=== PATIENT | male | born 1975 | race Caucasian/White ===

== ENCOUNTER 2017-12-03 13:04 | Emergency (ER) | payer OTHER ==
[~2017-12-03] VITALS: Ht 190.5 cm; Wt 105.7 kg
[~2017-12-03 13:04] MED LIST: ACETAMINOPHEN PO; AMOXICILLIN 50500 M1 PO; CIPRODEX OTIC7.5 ML OT; CLEOCIN HCL300 MG PO; CORTISPORIN OTI10 M2 OT; FLEXERIL PO; FLOMAX0.4 MG PO; FLONASE16 GM NS; IBUPROFEN 800800 M1 PO; MOBIC15 MG PO; NOHOMEMEDICATIONS; NORCO 5-325 TA1 EACH PO; PENICILLIN V P500 MG PO; PREDNISONE 20 M20 MG PO; PREDNISONE50 MG PO; ULTRAM 50MG TAB50 MG PO
[2017-12-03 14:40] VITALS: BP 142/91
== END 2017-12-03 14:43 | disposition home or self-care (01) ==
LOC: M.ERS 13:04
DX: T69.022A Immersion foot, left foot, initial encounter (principal); T69.021A Immersion foot, right foot, initial encounter; Z59.9 Problem related to housing and economic circumstances, unspecified; F17.210 Nicotine dependence, cigarettes, uncomplicated; Z86.14 Personal history of Methicillin resistant Staphylococcus aureus infection; Z59.0 Homelessness